=== PATIENT | female | born 2005 | race Caucasian/White ===

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

== ENCOUNTER 2025-04-06 17:13 | Emergency (ER) | payer MEDICAID, OTHER ==
[~2025-04-06] VITALS: Ht 162.6 cm; Wt 63.6 kg
[2025-04-06] MEDS: diphenhydrAMINE 50 MG/ML VIAL IV ONE (17:46)
[2025-04-06] MEDS: NS (Normal Saline) 0.9% 1,000 ML IV ONE (17:46)
[2025-04-06] MEDS: KETOROLAC 30 MG/ML 1 ML VIAL IV ONE (17:47)
[2025-04-06] MEDS ORDERED: REGL10TA6 PO (19:15)
[2025-04-06 19:20] VITALS: BP 99/61; TEMP 97.9; O2SAT 100
== END 2025-04-06 19:25 | disposition home or self-care (01) ==
LOC: M ED 17:13
DX: G43.909 Migraine, unspecified, not intractable, without status migrainosus (principal); Z79.899 Other long term (current) drug therapy
CPT/HCPCS: 96361; 96374; 96375; 99284; J1200; J1885; J2765